=== PATIENT | male | born 1990 | race Native Hawaiian/Other Pacific Islander ===

== ENCOUNTER 2017-08-23 10:05 | Day surgery (SDC) | payer MEDICAID ==
[2017-08-23] MEDS ORDERED: ceFAZolin 2 GM/50 ML 2 GM/50 ML BAG IV ONE (11:39)
[2017-08-23] MEDS ORDERED: LACTATED RINGERS 1,000 ML IV ONE (11:59)
[2017-08-23] MEDS ORDERED: HYDROmorphone 1 MG/ML SYRINGE IM ONE (14:10)
[2017-08-23] MEDS ORDERED: LIDOCAINE-MPF 2% 5 ML VIAL IM ONE (14:10)
[2017-08-23] MEDS ORDERED: KETOROLAC 30 MG/ML VIAL IVP ONE (14:10)
[2017-08-23] MEDS ORDERED: ACETAMINOPHEN 1,000 MG/100 ML 100 ML IV ONE (14:10)
[2017-08-23] MEDS ORDERED: ONDANSETRON 4 MG/2 ML VIAL IVP ONE (14:10)
[2017-08-23] MEDS ORDERED: MIDAZOLAM 2 MG/2 ML VIAL IVP ONE (14:10)
[2017-08-23] MEDS ORDERED: fentaNYL 100 MCG/2 ML VIAL IVP ONE (14:10)
[2017-08-23] MEDS ORDERED: PROPOFOL 200 MG/20 ML VIAL IVP ONE (14:10)
[2017-08-23] MEDS ORDERED: ROPIVACAINE 0.5% PF 20 ML AMPULE EP ONE (14:10)
[2017-08-23] MEDS ORDERED: BUPIVACAINE 0.25%-EPI 1:200000 PF 30 ML VIAL SUBQ ONE (16:35)
--- NOTE | 2017-08-23 18:01 | OPERATIVE REPORT ---
Operative Report - General Procedure Date: 08/23/17 Planned Procedure: OPEM REPAIR OF LEFT PATELLAR ENDON Pre-Op Diagnosis: LEFT PATELLA TENDON RUPTURE Procedure Performed: OPEN REPAIR OF LEFT PATELLAR TENDON. Post Op Diagnosis: SAME - Procedure Note Primary Surgeon: NELLIE Secondary Surgeon: TREMAINE Anesthesia Provider: PAKO Anesthesia Technique: General LMA Estimated Blood Loss (mL): 10 - Other Other Information/Narrative: TENDON RUPTURE WAS IN MID SUBSTANCE
[2017-08-23 18:15] VITALS: BP 125/70
--- NOTE | 2017-08-25 04:31 | OPERATIVE REPORT ---
DATE OF SURGERY: 08/23/2017 00:00:00 SURGEON: Arsen Doherty MD. CUSTOM CAR BUILDER: None. ANESTHESIA: FAYE Borja. ANESTHESIA TYPE: General LMA plus femoral nerve block. PREOPERATIVE DIAGNOSIS: Left knee patellar tendon avulsion from patella. POSTOPERATIVE DIAGNOSIS: Left knee patellar tendon rupture and substance. PROCEDURE PERFORMED: Left knee patellar tendon repair. TOURNIQUET: Was inflated to 300 mmHg for about 90 minutes. INDICATIONS: This patient had 3 weeks earlier, 5 days from injury to his left knee while playing bask etball, he had obvious separation of the space between the tibial tubercle and the patella and pain t here. No MRI scan was done. DESCRIPTION OF PROCEDURE: The patient was brought into the operating room and placed under adequate g eneral anesthesia. A femoral nerve block was administered. The left lower extremity was prepped and s terilely draped in the usual fashion. Thigh tourniquet had been applied. A time-out was done to identify the patient, site and procedure. A longitudinal incision was made centered over the area of expected repair. Once this skin was entere d, there was a bloody effusion, which was aspirated. The patella could be brought down into the wound area. There was some ligamentous origin visible. There was one bare area. There was a large portion of the lateral patellar tendon, which had been frayed severely, some of the strands reaching down to near the tibial tubercle and other portions only half that far. The tendon could be unraveled to some extent and appeared almost like the same . The medial portion was much more substantial, wel l anchored on the tibial tubercle as best could be felt. It was possible to attach this tendon up to the patella. The inferior margin of the patella was prepared with a rongeur. Two holes were placed in the patella from the anterior surface down to the inferior area where repair was expected. One #2 Fi berWire suture was then passed through the tendon with a locking stitch technique. Each limb of this was then brought up through its own hole in the patella. It was possible then to pull the ligament up into the patellar surface. This was tied. However, when range of motion was attempted, it was clear that the repair was too tight and that the patient would never recover flexion unless the patellar te ndon ruptured again. Therefore, the suture was removed and a second locking suture was placed, similarly pulled out, but n ot as snugly. After tying this, it was clear that the tendon was snug enough with the knee in flexion , but was loose enough that the patient would not regain full extension actively. Finally, a third placement of the suture was done. However, the placement of the stitch in the tendon was altered such that the suture was superficial on the tendon where it entered the holes in the pat radha rather than being beneath the tendon. This allowed for the tendon to be anchored a little more p osteriorly rather than anteriorly. This seemed to do very well in terms of a constant tension through the full range of motion, at least as far as 90 degrees. The wound was irrigated throughout the procedure. Attention was directed to the lateral mass of ligam ent tissue. All that could be done with this was to stitch it side to side into the larger fragment o f ligament. The wound was then irrigated until clear. At the level of the inferior pole of the patella, there had been a rent in the retinaculum both medial and lateral. This was reapproximated with 0 PDS suture. S ome 2-0 PDS suture was then used to reapproximate the subcutaneous and bursal tissues over the knee. The skin was closed with a running 3-0 Prolene subcuticular stitch reinforced with Steri-Strips. Ster ile bandage was applied. Knee immobilizer was applied. The patient was then awakened, extubated, and taken to the recovery room in good condition having tolerated the procedure well. JOB #: [id number] EXT JOB #:[id number]
== END 2017-08-23 10:06 | disposition home or self-care (01) ==
LOC: SDS 10:05
PROVIDERS: ATTEND Orthopaedic Surgery
PROC: 0LQM0ZZ Repair Left Upper Leg Tendon, Open Approach (ICD-10-PCS; principal; 2017-08-23 12:15)
DX: S76.192A Other specified injury of left quadriceps muscle, fascia and tendon, initial encounter (principal)
CPT/HCPCS: 27380; J0131; J0690; J1170; J7120